=== PATIENT | female | born 1950 | race Caucasian/White ===

== ENCOUNTER 2017-10-01 16:27 | Emergency (ER) | payer OTHER ==
[~2017-10-01] VITALS: Ht 167.6 cm; Wt 90.0 kg
[~2017-10-01 16:27] MED LIST: ALBUTEROL SULF8.5 GM IH; AMLODIPINE BESYL5 MG PO; ANTIVERT25 MG PO; ASPIR 8181 M1 PO; ASPIRIN EC325 MG PO; AZITHROMYCIN250 MG PO; CEFTIN500 MG PO; CELEXA20 MG PO; CELEXA40 MG PO; FIORICET WI1 CAPSULE PO; FLEXERIL10 MG PO; FLEXERIL5 MG PO; IBUPROFEN600 MG PO; LISINPRIL; MACROBID100 MG PO; MECLIZINE HCL25 MG PO; NORVASC5 MG PO; OMEGA 3 1,0001 EACH PO; OMEPRAZOLE40 M1 PO; PERCOCET 5/31 TABLET PO; PREDNISONE20 MG PO; SIMVASTATIN40 MG PO; SIMVASTATIN80 MG; TENORMIN25 MG PO; TYLENOL WITH C1 EACH PO; ZOFRAN4 MG PO
[2017-10-01 17:39] LABS: HEMATOCRIT 32.6 % (36.0-46.0); HEMOGLOBIN 11.3 G/DL (11.9-15.5); MCH 31.7 PG (29.0-34.0); MCHC 34.7 G/DL (30.0-36.0); MCV 91.3 FL (83-99); RBC DIS.WIDTH-CV 12.5 % (11.8-14.6); RBC DIS.WIDTH-SD 41.6 % (39-53); RED BLOOD COUNT 3.57 M/uL (3.80-5.20)
[2017-10-01] MEDS ORDERED: KEFLEX500 MG PO (17:41)
[2017-10-01 17:47] LABS: ALBUMIN 3.8 g/dL (3.2-4.8); CHLORIDE 102 mEq/L (99-109); POTASSIUM 3.7 mEq/L (3.7-5.4); SODIUM 135 mEq/L (136-147)
[2017-10-01 17:50] LABS: GLUCOSE 117 mg/dL (70-99); TOTAL PROTEIN 6.1 g/dL (6.4-8.3)
[2017-10-01 17:52] LABS: TOTAL BILIRUBIN 0.6 mg/dL (0.0-1.0)
[2017-10-01 17:53] LABS: ALKALINE PHOSPHATASE 63 IU/L (3-129); CREATININE 1.1 mg/dL (0.6-1.3); GFR ESTIMATE (CALCULATED) 53 mL/min/
[2017-10-01 17:54] LABS: UREA NITROGEN (BUN) 14 mg/dL (9-23)
[2017-10-01 17:55] LABS: AST (GOT) 24 IU/L (2-34)
[2017-10-01 17:56] LABS: ALT (GPT) 16 IU/L (3-49)
[2017-10-01 18:31] VITALS: BP 139/61
[2017-10-01 19:00] LABS: HEMATOLOGY COMMENT 1 SN; PLAT.SUFFICIENCY DECREASED; PLATELET COUNT 87 K/uL (156-360)
== END 2017-10-01 18:35 | disposition home or self-care (01) ==
LOC: EME 16:27
PROVIDERS: Physician Assistant
DX: L03.115 Cellulitis of right lower limb (principal); I10 Essential (primary) hypertension; K21.9 Gastro-esophageal reflux disease without esophagitis; E78.5 Hyperlipidemia, unspecified; F32.9 Major depressive disorder, single episode, unspecified; F17.200 Nicotine dependence, unspecified, uncomplicated; Z90.49 Acquired absence of other specified parts of digestive tract; Z79.82 Long term (current) use of aspirin; Z88.0 Allergy status to penicillin
CPT/HCPCS: 80053; 83605; 85027; 87040; 87070; 87075; 87205; 99281; 99285; J0696; J2405; J7030